=== PATIENT | male | born 1985 | race African-American/Black ===

== ENCOUNTER 2017-03-16 20:06 | Emergency (ER) | payer OTHER ==
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
[~2017-03-16 20:06] MED LIST: BACTRIM DS TABL1 TA2 PO; BENTYL20 MG PO; IMODIUM A-D2 M1 PO; NORCO 5/325 TAB1 TAB PO
== END 2017-03-16 21:38 | disposition home or self-care (01) ==
LOC: CFTX 20:06
DX: S13.4XXA Sprain of ligaments of cervical spine, initial encounter (principal); S40.012A Contusion of left shoulder, initial encounter; V49.50XA Passenger injured in collision with unspecified motor vehicles in traffic accident, initial encounter
CPT/HCPCS: 72040; 73000; 99284